=== PATIENT | male | born 1980 | race Asian ===

== ENCOUNTER 2022-04-11 14:42 | Inpatient (IN) | payer OTHER ==
[~2022-04-11] VITALS: Ht 167.6 cm; Wt 54.5 kg
[2022-04-11] MEDS ORDERED: AmLODIPine BESYLATE 5 MG TABLET PO ONE (15:30)
[2022-04-11] MEDS ORDERED: ZOLPIDEM TARTRATE 5 MG TABLET PO PRN (15:45)
[2022-04-11] MEDS ORDERED: CloNIDine HCL 0.1 MG TABLET PO PRN (15:45)
[2022-04-11] MEDS ORDERED: ACETAMINOPHEN 325 MG TABLET PO PRN (15:45)
[2022-04-11 15:47] LABS: BASOPHILS % (AUTO) 0.4 % (0.0-2.0); EOSINOPHILS % (AUTO) 0.7 % (1.0-6.0); HEMATOCRIT 47.6 % (41-53); LYMPHOCYTES % (AUTO) 22.4 % (22.0-44.0); MEAN CORPUSCULAR HEMOGLOBIN 29.6 pg (26.0-34.0); MEAN CORPUSCULAR HGB CONC 33.7 G/dL (31.0-37.0); MEAN CORPUSCULAR VOLUME 88 fL (80-100); MONOCYTES # (AUTO) 0.4 K/uL (0.1-1.0); MONOCYTES % (AUTO) 4.3 % (2.0-9.0); NEUTROPHILS # (AUTO) 6.4 K/uL (1.8-7.7); NEUTROPHILS % (AUTO) 72.2 % (40.0-70.0); PLATELET COUNT (AUTO) 273 K/uL (150-450); RED BLOOD CELL COUNT(AUTO) 5.41 MIL/uL (4.50-5.90); RED CELL DISTRIBUTION WIDTH 12.2 % (11.5-14.5)
[2022-04-11] MEDS: ASPIRIN 81 MG CHEWABLE TABLET PO SCH (16:02)
[2022-04-11 16:05] LABS: ANION GAP 10 mmol/L (8-16); CALCIUM, TOTAL 9.1 mg/dL (8.8-10.5); CARBON DIOXIDE 29 mmol/L (22-29); CHLORIDE 103 mmol/L (98-107); CREATININE 0.94 mg/dL (0.60-1.30); GLOMERULAR FILTR. RATE CALC > 60 mL/min (>60); GLUCOSE,RANDOM 110 mg/dL (70-110); POTASSIUM 4.1 mmol/L (3.5-5.1); SODIUM SERUM 142 mmol/L (136-145); UREA NITROGEN, BLOOD 12 mg/dL (7-18)
[2022-04-11] MEDS: LOSARTAN POTASSIUM 25 MG TABLET PO SCH (16:09)
[2022-04-11 16:11] LABS: ALANINE AMINOTRANSFERASE 48 U/L (12-78); ALKALINE PHOSPHATASE 80 U/L (46-116); ASPARTATE AMINOTRANSFERASE 18 U/L (15-37); BILIRUBIN,TOTAL 0.5 mg/dL (0.1-1.0); TOTAL PROTEIN, SERUM 8.2 g/dL (6.4-8.2)
[2022-04-11 19:34] LABS: COVID AG,FIA SOURCE NASAL SWAB
[2022-04-11 22:05] VITALS: BP 138/97
[2022-04-11] MEDS: DOCUSATE SODIUM 100 MG CAPSULE PO SCH (22:41)
[2022-04-12 03:58] VITALS: BP 124/83
[2022-04-12] MEDS: ASPIRIN 81 MG CHEWABLE TABLET PO SCH (08:14)
[2022-04-12] MEDS: DOCUSATE SODIUM 100 MG CAPSULE PO SCH (08:14)
[2022-04-12] MEDS: LOSARTAN POTASSIUM 25 MG TABLET PO SCH (08:15)
[2022-04-12 08:16] VITALS: BP 129/81
[2022-04-12 08:35] LABS: AMPHET/METH SCREEN,URINE NEGATIVE (NEGATIVE); BARBITURATE SCREEN, URINE NEGATIVE (NEGATIVE); BENZODIAZEPINES SCREEN,URINE NEGATIVE (NEGATIVE); CANNABINOID SCREEN,URINE NEGATIVE (NEGATIVE); COCAINE SCREEN,URINE NEGATIVE (NEGATIVE); METHADONE SCREEN, URINE NEGATIVE (NEGATIVE); OPIATE SCREEN,URINE NEGATIVE (NEGATIVE)
[2022-04-12 08:36] LABS: PHENCYCLIDINE SCREEN,URINE NEGATIVE (NEGATIVE)
[2022-04-12] MEDS ORDERED: AmLODIPine BESYLATE 5 MG TABLET PO SCH (09:00)
[2022-04-12] MEDS ORDERED: FAMOTIDINE 20 MG TABLET PO SCH (09:00)
== END 2022-04-12 10:45 | DRG 305 ==
LOC: EMS 14:42 → 6S 20:36
PROVIDERS: ADMIT Internal Medicine; ATTEND Internal Medicine
DX: I10 Essential (primary) hypertension (principal); Z20.822 Contact with and (suspected) exposure to COVID-19; J31.2 Chronic pharyngitis; Z87.891 Personal history of nicotine dependence
CPT/HCPCS: 80053; 85025; 93005; 99285